=== PATIENT | male | born 1955 | race Caucasian/White ===

== ENCOUNTER 2018-06-08 07:40 | Day surgery (SDC) | payer OTHER ==
[~2018-06-08] VITALS: Ht 175.3 cm; Wt 88.5 kg
[2018-06-08 08:37] VITALS: BP 173/105
[2018-06-08 14:21] VITALS: BP 135/84
== END 2018-06-08 14:05 | disposition home or self-care (01) ==
LOC: DS 07:40 → OR 09:30 → DS 14:05
PROVIDERS: Neuromusculoskeletal Medicine, Sports Medicine
PROC: 0LQ10ZZ Repair Right Shoulder Tendon, Open Approach (ICD-10-PCS; 2018-06-08)
PROC: 0MN10ZZ Release Right Shoulder Bursa and Ligament, Open Approach (ICD-10-PCS; principal; 2018-06-08 09:30)
DX: M75.111 Incomplete rotator cuff tear or rupture of right shoulder, not specified as traumatic (principal); I10 Essential (primary) hypertension
CPT/HCPCS: C1713; J0690; J1170; J2250; J2405; J2704; J3010; J3490; J7120